=== PATIENT | male | born 1975 | race Caucasian/White ===

== ENCOUNTER → 2017-10-27 | Outpatient (CLI) | payer OTHER ==
[~2017-10-27] MED LIST: DIPROLENE 0.05%15 GM TP
[2017-10-27 13:57] LABS: BASOPHIL (%) 0.5 % (0-1); EOSINOPHIL (%) 1.6 % (0-5); EOSINOPHIL COUNT 0.1 K/uL (0-0.3); HEMATOCRIT 40.2 % (38.0-50.0); HEMOGLOBIN 14.3 G/DL (12.5-16.6); IMMATURE GRANULOCYTE (%) 0.2 % (0.0-0.7); LYMPHOCYTE (%) 15.3 % (15-42); LYMPHOCYTE COUNT 1.4 K/uL (1.0-2.8); MCH 32.9 PG (29.0-34.0); MCHC 35.6 G/DL (30.0-36.0); MCV 92.4 FL (86-99); MONOCYTE COUNT 0.7 K/uL (0-0.8); NEUTROPHIL (%) 74.4 % (45-76); NEUTROPHIL COUNT 6.6 K/uL (1.8-6.4); PLATELET COUNT 231 K/uL (156-360); RBC DIS.WIDTH-CV 11.4 % (11.8-14.6); RBC DIS.WIDTH-SD 39.1 % (39-53); RED BLOOD COUNT 4.35 M/uL (4.00-5.50); WHITE BLOOD COUNT 8.8 K/uL (4.1-10.2)
[2017-10-27 16:24] LABS: BAND NEUTROPHILS 1.7 % (0-8.0); BASOPHILS 0.9 %; EOSINOPHIL ABS CT 0; LYMPHOCYTES 13.9 % (15.0-45.0); MONOCYTES 6.1 % (0-9.0); PLAT.SUFFICIENCY ADEQUATE; SEG.NEUTROPHILS 77.4 % (46.0-76.0)
== END | disposition home or self-care (01) ==
LOC: OPR 12:52 → EDSTATUS 13:00 → OPR 13:00
PROVIDERS: Internal Medicine
DX: C81.91 Hodgkin lymphoma, unspecified, lymph nodes of head, face, and neck (principal); L40.9 Psoriasis, unspecified; E78.00 Pure hypercholesterolemia, unspecified; R74.0 Nonspecific elevation of levels of transaminase and lactic acid dehydrogenase [LDH]; F17.220 Nicotine dependence, chewing tobacco, uncomplicated
CPT/HCPCS: 77012; 85007; 85025; J3010

== ENCOUNTER 2017-11-03 10:21 | Day surgery (SDC) | payer OTHER ==
[~2017-11-03] VITALS: Ht 182.9 cm; Wt 84.0 kg
[2017-11-03 11:36] VITALS: BP 118/70
[2017-11-03] MEDS ORDERED: NORCO 5/3251 TABLET PO (12:59)
[2017-11-03 13:21] VITALS: BP 145/72
[2017-11-03 14:20] VITALS: BP 121/78
== END 2017-11-03 14:40 | disposition home or self-care (01) ==
LOC: SDC 10:21
DX: I87.8 Other specified disorders of veins (principal); C81.91 Hodgkin lymphoma, unspecified, lymph nodes of head, face, and neck; L40.9 Psoriasis, unspecified; E78.5 Hyperlipidemia, unspecified; E78.00 Pure hypercholesterolemia, unspecified; F17.220 Nicotine dependence, chewing tobacco, uncomplicated; Z80.7 Family history of other malignant neoplasms of lymphoid, hematopoietic and related tissues; Z80.8 Family history of malignant neoplasm of other organs or systems
CPT/HCPCS: 71045; C1751; J0690; J2250

== ENCOUNTER → 2017-12-02 | Outpatient (CLI) | payer OTHER ==
[~2017-12-02] MED LIST changes: +NORCO 5/3251 TABLET PO
== END | disposition home or self-care (01) ==
LOC: RES 11-07 13:00
DX: C81.91 Hodgkin lymphoma, unspecified, lymph nodes of head, face, and neck (principal)
CPT/HCPCS: 94060; 94726; 94729